=== PATIENT | female | born 1960 | race Two or more races ===

== ENCOUNTER → 2024-01-23 07:31 | Outpatient (REF) | payer MEDICARE, SELFPAY ==
[2024-01-23 08:51] LABS: Urine Albumin Negative (Neg - Trace); Urine Bilirubin Negative (Negative); Urine Character Clear (Clear); Urine Color Yellow; Urine Glucose Negative (Negative); Urine Ketone Negative (Negative); Urine Leukocyte Trace (Negative); Urine Nitrite Negative (Negative); Urine Occult Blood Negative (Negative); Urine Urobilinogen Negative (Neg - 1+)
[2024-01-23 08:53] LABS: % Basophils 1.3 % (0-2); % Eosinophils 6.6 % (0-6); % Immature Granulocytes 0.2 % (0-0.5); % Lymphocytes 24.7 % (20.5-51.1); % Monocytes 9.7 % (1.7-9.3); % Neutrophils 57.5 % (42.2-75.2); Absolute Basophils 0.1 10^3/uL (0-0.2); Absolute Eosinophils 0.4 10^3/uL (0-0.7); Absolute Lymphocytes 1.6 10^3/uL (1.2-3.4); Absolute Monocytes 0.6 10^3/uL (0.1-0.6); Absolute Neutrophils 3.7 10^3/uL (1.4-6.5); Hematocrit 39.5 % (37.0-47.0); Mean Corp Hgb Conc. 32.9 g/dL (33.0-37.0); Mean Corpuscular Hgb 31.9 pg (27.0-31.0); Mean Corpuscular Volume 96.8 fL (81.0-99.0); Mean Platelet Volume 10.9 fL (7.4-10.4); Nucleated Red Blood Cells % 0 %; Platelet Count 314 10^3/uL (130-400); Red Blood Cell Count 4.08 10^6/uL (4.20-5.40); Red Cell Dist. Width 12.3 % (11.5-14.5); White Blood Cell Count 6.4 10^3/uL (4.8-10.8)
[2024-01-23 09:10] LABS: Urine Bacteria Few (Negative)
[2024-01-23 09:11] LABS: Urine Mucus Few
[2024-01-23 09:31] LABS: Vitamin D, 25-OH*** 24.8 ng/mL (30-80)
[2024-01-23 09:33] LABS: ALT (SGPT) 17 U/L (0-35); AST (SGOT) 21 U/L (14-36); Albumin 4.3 g/dl (3.5-5.0); Alkaline Phosphatase 127 U/L (38-126); Blood Urea Nitrogen 17 mg/dl (7-17); Calcium 9.8 mg/dl (8.4-10.2); Carbon Dioxide 26 mmol/L (22-30); Chloride 106 mmol/L (98-107); Glucose 99 mg/dl (70-99); HDL Cholesterol 80 mg/dl; LDL Cholesterol, Calculated 150 mg/dl; Potassium 4.6 mmol/L (3.5-5.1); Sodium 139 mmol/L (135-145); Total Bilirubin 0.6 mg/dl (0.2-1.3); Total Cholesterol 248 mg/dl (50-199); Total Protein 6.7 g/dl (6.3-8.2); Triglyceride 93 mg/dl (10-149); Very Low Density Lipoprotein 18 mg/dl (0-30); eGFR > 60.00
[2024-01-23 09:45] LABS: TSH Reflex To Free T4 2.57 uIU/ml (0.47-4.68)
[2024-01-23 10:04] LABS: Vitamin B12 > 1000 pg/ml (239-931)
[2024-01-23 13:47] LABS: Glycohemoglobin (HgbA1c) 5.4 % (4.0-5.6)
== END ==
LOC: REG 07:31
PROVIDERS: ATTENDING PHYSICIAN Student in an Organized Health Care Education/Training Program
DX: J30.9 Allergic rhinitis, unspecified (principal); E55.9 Vitamin D deficiency, unspecified; E78.00 Pure hypercholesterolemia, unspecified; E66.01 Morbid (severe) obesity due to excess calories; R73.03 Prediabetes; G62.9 Polyneuropathy, unspecified; Z79.899 Other long term (current) drug therapy
CPT/HCPCS: 36415; 80053; 80061; 81003; 81015; 82306; 82607; 83036; 84443; 85025

== ENCOUNTER → 2024-09-02 16:02 | Outpatient (REF) | payer MEDICARE, SELFPAY | LOC: RCS 16:02 | PROVIDERS: ATTENDING PHYSICIAN Psychiatry & Neurology Forensic Psychiatry | DX: Z13.6 Encounter for screening for cardiovascular disorders (principal) | CPT/HCPCS: 93005 ==

== ENCOUNTER → 2025-04-28 11:30 | Outpatient (REF) | payer MEDICARE, SELFPAY ==
[2025-04-28 12:46] LABS: Hematocrit 40.3 % (37.0-47.0); Hemoglobin 13.3 g/dL (12.0-16.0); Mean Corp Hgb Conc. 33.0 g/dL (33.0-37.0); Mean Corpuscular Volume 94.8 fL (81.0-99.0); Platelet Count 315 10^3/uL (130-400); Red Cell Dist. Width 12.3 % (11.5-14.5)
[2025-04-28 13:26] LABS: ALT (SGPT) 18 U/L (0-35); AST (SGOT) 20 U/L (14-36); Albumin 4.4 g/dl (3.5-5.0); Alkaline Phosphatase 97 U/L (38-126); Blood Urea Nitrogen 15 mg/dl (7-17); Calcium 9.7 mg/dl (8.4-10.2); Carbon Dioxide 26 mmol/L (22-30); Chloride 103 mmol/L (98-107); Glucose 90 mg/dl (70-99); HDL Cholesterol 71 mg/dl; LDL Cholesterol, Calculated 144 mg/dl; Potassium 4.9 mmol/L (3.5-5.1); Sodium 137 mmol/L (135-145); Total Protein 6.9 g/dl (6.3-8.2); Very Low Density Lipoprotein 21 mg/dl (0-30); eGFR > 60.00
[2025-04-28 13:57] LABS: Glycohemoglobin (HgbA1c) 5.5 % (4.0-5.6)
[2025-04-28 14:32] LABS: Folate 6.3 ng/ml (2.76-20); Vitamin B12 754 pg/ml (239-931)
== END ==
LOC: REG 11:30
PROVIDERS: ATTENDING PHYSICIAN Nurse Practitioner Family
DX: E78.00 Pure hypercholesterolemia, unspecified (principal); G62.9 Polyneuropathy, unspecified; E55.9 Vitamin D deficiency, unspecified; Z13.1 Encounter for screening for diabetes mellitus; Z13.29 Encounter for screening for other suspected endocrine disorder; I10 Essential (primary) hypertension; D51.8 Other vitamin B12 deficiency anemias
CPT/HCPCS: 36415; 80053; 80061; 82607; 82652; 82746; 83036; 84443; 85027